=== PATIENT | male | born 1970 | race Hispanic/Latino ===

== ENCOUNTER 2017-10-30 10:43 | Observation (INO) | payer BC ==
[2017-10-30 10:50] VITALS: BMI 27.1
[2017-10-30] MEDS ORDERED: Sodium Chloride 0.9% 1,000 ML IV STA (11:49)
--- NOTE | 2017-10-30 11:56 | ED PDOC ---
HPI: Chest Pain Time Seen by Provider: 10/30/17 10:58 Chief Complaint (Nursing): Chest Pain Chief Complaint (Provider): Chest pain History Per: Patient History/Exam Limitations: no limitations Onset/Duration Of Symptoms: Days (Tues) Additional History Per: Patient Additional Complaint(s): Pt. with chest pain left side off and on. Took asa today as pain was still there. He got palpitations briefly with it today so he came to the ER. Has left hand fingers with off and on tingles when the pain in the chest comes. Dyspnea also with the pain. No leg pain, abd pain, numbness, arm pain, vision changes, headaches, dizziness, long distance travel, or hormone use. Past Medical History Reviewed: Nursing Documentation, Vital Signs Vital Signs: Last Vital Signs Temp 97.7 F 10/30/17 10:52 Pulse 62 10/30/17 14:04 Resp 18 10/30/17 14:04 BP 112/64 10/30/17 14:04 Pulse Ox 98 10/30/17 14:04 - Medical History PMH: No Chronic Diseases - Surgical History Surgical History: No Surg Hx - Family History Family History: States: Unknown Family Hx - Home Medications Home Medications: Ambulatory Orders Medication Instructions Recorded No Known Home Med 10/30/17 - Allergies Allergies/Adverse Reactions: Allergies Allergy/AdvReac Type Severity Reaction Status Date / Time No Known Allergies Allergy Verified 10/30/17 11:10 Review of Systems ROS Statement: Except As Marked, All Systems Reviewed And Found Negative Cardiovascular: Positive for: Chest Pain Respiratory: Positive for: Shortness of Breath Physical Exam - Reviewed Nursing Documentation Reviewed: Yes Vital Signs Reviewed: Yes - Physical Exam Appears: Positive for: Non-toxic, No Acute Distress Head Exam: Positive for: ATRAUMATIC, NORMAL INSPECTION, NORMOCEPHALIC Skin: Positive for: Normal Color, Warm, DRY Eye Exam: Positive for: EOMI, Normal appearance, PERRL ENT: Positive for: Normal ENT Inspection Neck: Positive for: Normal, Painless ROM Cardiovascular/Chest: Positive for: Regular Rate, Rhythm, Chest Non Tender. Negative for: Edema Respiratory: Positive for: CNT, Normal Breath Sounds Gastrointestinal/Abdominal: Positive for: Normal Exam, Soft. Negative for: Tenderness Back: Positive for: Normal Inspection. Negative for: L CVA Tenderness, R CVA Tenderness Extremity: Positive for: Normal ROM. Negative for: Tenderness, Pedal Edema Neurologic/Psych: Positive for: Alert, Oriented - Laboratory Results Result Diagrams: 10/30/17 12:05 10/30/17 12:05 Interpretation Of Abn Labs: no acute - ECG ECG: Positive for: Interpreted By Me, Viewed By Me ECG Rhythm: Positive for: Normal QRS (inverted t wave lead 3), Normal ST Segment , Sinus Rhythm O2 Sat by Pulse Oximetry: 97 Pulse Ox Interpretation: Normal - Radiology X-Ray: Interpreted by Me, Viewed By Me X-Ray Interpretation: No Acute Disease - Progress ED Course And Treament: 1506: Stable. AAOx3. Pain gone after nitro. Will need obs for acs workup. Has not had a work up for it. Considering type of pain and presentation, will admit obs. Pt. does not know pcp. Ok with admit to medical doctor budget consultant. 1514: Spoke with Dr. Gil. Will admit tele obs. Disposition - Clinical Impression Clinical Impression: Chest pain Counseled Patient/Family Regarding: Studies Performed, Diagnosis - Disposition Disposition Time: 15:14 Condition: FAIR - Pt Status Changed To: Hospital Disposition Of: Observation - POA Present On Arrival: None
[2017-10-30 12:14] LABS: BASO # 0.1 K/uL (0.0-0.2); EOS # 0.1 K/uL (0.0-0.7); EOS % 1.8 % (0.0-4.0); HEMOGLOBIN 13.9 g/dL (12.0-18.0); LYMPH # 1.1 K/uL (1.0-4.3); LYMPH % 21.2 % (20.0-40.0); MEAN CELL VOLUME 81.1 fl (80.0-94.0); MEAN CORPUSCULAR HEMOGLOBIN 28.5 pg (27.0-31.0); MEAN CORPUSCULAR HGB CONC 35.2 g/dL (33.0-37.0); MONO # 0.4 K/uL (0.0-0.8); NEUT # 3.4 K/uL (1.8-7.0); NRBC % 0.2 % (0.0-0.0); RBC 4.89 Mil/uL (4.40-5.90); RED CELL DISTRIBUTION WIDTH 13.9 % (11.5-14.5)
[2017-10-30 12:25] LABS: PARTIAL THROMBOPLASTIN TIME 33.4 Seconds (25.6-37.1); PROTHROMBIN TIME 11.6 Seconds (9.8-13.1)
[2017-10-30 12:47] LABS: BLOOD UREA NITROGEN 15 mg/dl (9-20); CALCIUM 9.3 mg/dL (8.4-10.2); GFR NON-AFRICAN AMERICAN > 60
[2017-10-30 12:48] LABS: ALB/GLOB RATIO 1.4 (1.0-2.1); ALBUMIN 4.3 g/dL (3.5-5.0); ALT/SGPT 30 U/L (21-72); AST/SGOT 28 U/L (17-59)
--- NOTE | 2017-10-30 15:21 | RAD ---
Date of service: 10/30/2017 HISTORY: Dyspnea COMPARISON: 08/27/2011. FINDINGS: LUNGS: No active pulmonary disease. PLEURA: No significant pleural effusion identified, no pneumothorax apparent. CARDIOVASCULAR: Normal. OSSEOUS STRUCTURES: No significant abnormalities. VISUALIZED UPPER ABDOMEN: Normal. OTHER FINDINGS: None. IMPRESSION: No active disease. No significant interval change compared to the prior examination(s). Concordant results with the preliminary interpretation rendered by the emergency department physician procedure.
--- NOTE | 2017-10-30 15:42 | CP.PCM.HP ---
<Rosey Peraza - Last Filed: 10/30/17 17:07> History of Present Illness - History of Present Illness History of Present Illness: HPI: 47 YO Male with no sig PMHx presents to [facility] ED for chest pain. Pt states that his chest pain started on Thursday and episodes are intermittent. Pt describes the pain as L sided, lasts about 30-40 mins each time and resolves on its own. Pain not associated with activity, but during these episodes pt has increase diaphoresis, and some L arm numbness (that resolves when pain stops). Pt has been taking Asa 81mg at home the past few days to help with the pain. In the ED, pain resolved after Nitro. PMHx: denies Surghx: R inguinal hernia repair (2017) FHx: PCKD in father SH: denies smoking and illicit drug use, social ETOH Allergies: NKDA Meds: asa 81 and occasional tylenol Present on Admission - Present on Admission Any Indicators Present on Admission: No Review of Systems - Constitutional Constitutional: absent: Fever, Headache, Malaise, Weight Loss - Cardiovascular Cardiovascular: Chest Pain. absent: Dyspnea - Respiratory Respiratory: absent: Cough, Dyspnea - Gastrointestinal Gastrointestinal: absent: Abdominal Pain, Diarrhea, Dysphagia - Genitourinary Genitourinary: absent: Dysuria - Musculoskeletal Musculoskeletal: absent: Back Pain, Muscle Weakness, Myalgias - Neurological Neurological: Tingling. absent: Dizziness, Numbness, Headaches Past Patient History - Past Social History Smoking Status: Never Smoked Alcohol: Social Drugs: Denies Home Situation {Lives}: With Family - PSYCHIATRIC Hx Substance Use: No - SURGICAL HISTORY Hx Surgeries: No Meds Allergies/Adverse Reactions: Allergies Allergy/AdvReac Type Severity Reaction Status Date / Time No Known Allergies Allergy Verified 10/30/17 11:10 Physical Exam - Constitutional Appears: No Acute Distress - Head Exam Head Exam: NORMAL INSPECTION - Eye Exam Eye Exam: EOMI, Normal appearance - ENT Exam ENT Exam: Mucous Membranes Moist - Respiratory Exam Respiratory Exam: Clear to Auscultation Bilateral, NORMAL BREATHING PATTERN. absent: Wheezes - Cardiovascular Exam Cardiovascular Exam: REGULAR RHYTHM, +S1, +S2 Additional comments: No chest wall tenderness - GI/Abdominal Exam GI & Abdominal Exam: Normal Bowel Sounds, Soft. absent: Tenderness - Extremities Exam Extremities exam: Positive for: normal inspection. Negative for: pedal edema Additional comments: Strength 5/5 upper and lower extremities Sensory intact b/l - Back Exam Back exam: NORMAL INSPECTION. absent: CVA tenderness (L), CVA tenderness (R) - Neurological Exam Neurological exam: Alert, CN II-XII Intact, Oriented x3 - Psychiatric Exam Psychiatric exam: Normal Mood Results - Vital Signs Recent Vital Signs: Last Vital Signs Temp 97.7 F 10/30/17 10:52 Pulse 62 10/30/17 14:04 Resp 18 10/30/17 14:04 BP 112/64 10/30/17 14:04 Pulse Ox 97 10/30/17 15:14 - Labs Result Diagrams: 10/30/17 12:05 10/30/17 12:05 Labs: Laboratory Results - last 24 hr 10/30/17 10/30/17 10/30/17 12:05 12:05 12:05 WBC 5.0 RBC 4.89 Hgb 13.9 Hct 39.6 MCV 81.1 MCH 28.5 MCHC 35.2 RDW 13.9 Plt Count 198 MPV 8.0 Neut % (Auto) 67.0 Lymph % (Auto) 21.2 [place] % (Auto) 9.0 Eos % (Auto) 1.8 Baso % (Auto) 1.0 Neut # (Auto) 3.4 Lymph # (Auto) 1.1 [place] # (Auto) 0.4 Eos # (Auto) 0.1 Baso # (Auto) 0.1 PT 11.6 INR 1.0 APTT 33.4 D-Dimer, Quantitative 104 Sodium 141 Potassium 4.1 Chloride 106 Carbon Dioxide 25 Anion Gap 14 BUN 15 Creatinine 0.9 Est GFR ( Amer) > 60 Est GFR (Non-Af Amer) > 60 Random Glucose 93 Calcium 9.3 Total Bilirubin 1.2 AST 28 ALT 30 Alkaline Phosphatase 60 Troponin I < 0.0120 Total Protein 7.4 Albumin 4.3 Globulin 3.1 Albumin/Globulin Ratio 1.4 Assessment & Plan (1) Chest pain Status: Acute - Assessment and Plan (Free Text) Assessment: Assessment/Plan: 47 YO Male with no sig PMHx is admitted for chest pain, r/o ACS. -VS remain stable -CXR with no acute disease -EKG no acute ST elevation noted, rate 69 -Trop x 1 neg -Blood work reviewed, normal -cardiology consulted -follow up trops and blood work -plan as ordered Pt discussed with Dr. Gil <Deon Gil - Last Filed: 11/01/17 20:30> Results - Vital Signs Recent Vital Signs: Last Vital Signs Temp 97.8 F 10/31/17 08:00 Pulse 56 L 10/31/17 08:00 Resp 20 10/31/17 08:00 BP 120/74 10/31/17 08:00 Pulse Ox 97 10/31/17 08:00 - Labs Result Diagrams: 10/30/17 12:05 10/30/17 12:05 Labs: Laboratory Results - last 24 hr 10/31/17 06:00 Hemoglobin A1c 4.3 Assessment & Plan - Assessment and Plan (Free Text) Assessment: Patient was personally seen and examined by me in rounds with residents. Available labs and diagnostic data reviewed. Case, Patient's condition and management plan discussed with residents in rounds. Agree with resident's progress note. Plan: As ordered.
--- NOTE | 2017-10-30 19:14 | CP.PCM.CON ---
History of Present Illness - History of Present Illness History of Present Illness: PT C/O CP X 5 DAYS. PAIN IS DESCRIBED PRESSURE OVER LEFT LOWER CHEST, WITH ASSOCIATED LEFT HAND TIGHTNESS, 7/10, LASTING 20 MIN, OCCURRING AT REST AND IMPROVING WITH MOVEMENT AND WALKING. PT HAS ASSOCIATED DYSPNEA AND DIAPHORESIS. NO N/V/D/C, F/C, NO TREMORS. PT DENIES HTN, DYSLIPIDEMIA, DM, FAM HX OF CAD OR HX OF TOBACCO. EKG SHOWS SR, NML AXIS, INTERVALS AND ST SEGMENTS Review of Systems - Constitutional Constitutional: As Per HPI. absent: Anorexia, Chills, Daytime Sleepiness, Excessive Sweating, Fatigue, Fever, Frequent Falls, Headache, Increased Appetite , Lethargy, Malaise, Night Sweats, Snoring, Sleep Apnea, Weight Gain, Weight Loss, Weakness, Other - EENT Eyes: As Per HPI. absent: Blind Spots, Blurred Vision, Change in Vision, Decreased Night Vision, Diplopia, Discharge, Dry Eye, Exophthalmos, Floaters, Irritation, Itchy Eyes, Loss of Peripheral Vision, Pain, Photophobia, Requires Corrective Lenses, Sees Flashes, Spots in Vision, Tunnel Vision, Other Visual Disturbances, Loss of Vision, Other Ears: As Per HPI. absent: Decreased Hearing, Ear Discharge, Ear Pain, Tinnitus , Abnormal Hearing, Disequilibrium, Dizziness, Other Nose/Mouth/Throat: As Per HPI. absent: Epistaxis, Nasal Congestion, Nasal Discharge, Nasal Obstruction, Nasal Trauma, Nose Pain, Post Nasal Drip, Sinus Pain, Sinus Pressure, Bleeding Gums, Change in Voice, Dental Pain, Dry Mouth, Dysphagia, Halitosis, Hoarsness, Lip Swelling, Mouth Lesions, Mouth Pain, Odynophagia, Sore Throat, Throat Swelling, Tongue Swelling, Facial Pain, Neck Pain, Neck Mass, Other - Cardiovascular Cardiovascular: As Per HPI, Chest Pain at Rest, Diaphoresis, Dyspnea. absent: Acrocyanosis, Chest Pain, Chest Pain with Activity, Claudication, Dyspnea on Exertion, Edema, Irregular Heart Rhythm, Pain Radiating to Arm/Neck/Jaw, Leg Edema, Leg Ulcers, Lightheadedness, Orthopnea, Palpitations, Paroxysmal Nocturnal Dyspnea, Pedal Edema, Radiating Pain, Rapid Heart Rate, Slow Heart Rate, Syncope, Other - Respiratory Respiratory: As Per HPI. absent: Cough, Dyspnea, Hemoptysis, Dyspnea on Exertion, Wheezing, Snoring, Stridor, Pain on Inspiration, Chest Congestion, Excessive Mucous Production, Change in Mucous Color, Pain with Coughing, Other - Gastrointestinal Gastrointestinal: As Per HPI. absent: Abdominal Pain, Belching, Bloating, Change in Bowel Habits, Change in Stool Character, Coffee Ground Emesis, Constipation, Cramping, Diarrhea, Dyspepsia, Dysphagia, Early Satiety, Excessive Flatus, Fecal Incontinence, Heartburn, Hematemesis, Hematochezia, Loose Stools, Melena, Nausea, Odynophagia, Temesmus, Vomiting, Other - Genitourinary Genitourinary: As Per HPI. absent: Change in Urinary Stream, Difficulty Urinating, Dysuria, Flank Pain, Hematuria, Pyuria, Nocturia, Urinary Incontinence, Urinary Frequency, Urinary Hesitance, Urinary Urgency, Voiding Freq/Small Amts, Freq UTI, Hx Renal/Bladder Calculi, Hx /Renal Surgery, Bladder Distension, Other - Musculoskeletal Musculoskeletal: As Per HPI. absent: Abnormal Gait, Arthralgias, Atrophy, Back Pain, Deformity, Joint Swelling, Limited Range of Motion, Loss of Height, Muscle Cramps, Muscle Weakness, Myalgias, Neck Pain, Numbness, Radiating Pain into Limb, Stiffness, Tingling, Other - Integumentary Integumentary: As Per HPI. absent: Acne, Alopecia, Bleeding Lesions, Change in Hair, Change in Nails, Change in Pigmentation, Changing Lesions, Dry Skin, Erythema, Furuncle, Hirsutism, Lesions, New Lesions, Non-Healing Lesions, Photosensitivity, Pruritus, Rash, Skin Pain, Skin Ulcer, Sores, Striae, Swelling , Unusual Bruising, Wounds, Jaundice, Other - Neurological Neurological: As Per HPI. absent: Abnormal Gait, Abnormal Hearing, Abnormal Movements, Abnormal Speech, Behavioral Changes, Burning Sensations, Confusion, Convulsions, Disequilibrium, Dizziness, Numbness, Focal Weakness, Frequent Falls , Headaches, Lack of Coordination, Loss of Vision, Memory Loss, Paresthesias, Radicular Pain, Restless Legs, Sensory Deficit, Syncope, Tingling, Tremor, Vertigo, Weakness, Other Visual Disturbances, Other - Psychiatric Psychiatric: As Per HPI. absent: Abnormal Sleep Pattern, Anhedonia, Anxiety, Auditory Hallucinations, Behavioral Changes, Change in Appetite, Change in Libido, Confusion, Depression, Difficulty Concentrating, Hallucinations, Homicidal Ideation, Hopelessness, Irritability, Memory Loss, Mood Swings, Panic Attacks, Paranoia, Suicidal Ideation, Visual Hallucinations, Tactile Hallucinations, Other - Endocrine Endocrine: As Per HPI. absent: Change in Body Appearance, Change in Libido, Cold Intolorance, Deepening of Voice, Excessive Sweating, Fatigue, Flushing, Heat Intolorance, Increase in Ring/Shoe/Hat Size, Palpitations, Polydipsia, Polyphagia, Polyuria, Other - Hematologic/Lymphatic Hematologic: As Per HPI. absent: Easy Bleeding, Easy Bruising, Lymphadenopathy , Other Past Patient History - Past Medical History & Family History Past Medical History?: No - Past Social History Smoking Status: Never Smoked Alcohol: Social Drugs: Denies Home Situation {Lives}: With Family - HEMATOLOGICAL/ONCOLOGICAL Hx Blood Disorders: No - MUSCULOSKELETAL/RHEUMATOLOGICAL Hx Falls: No - PSYCHIATRIC Hx Substance Use: No - SURGICAL HISTORY Hx Surgeries: No - ANESTHESIA Hx Anesthesia: No Hx Anesthesia Reactions: No Hx Malignant Hyperthermia: No Has any member of the family had a problem w/ anesthesia?: No Meds Allergies/Adverse Reactions: Allergies Allergy/AdvReac Type Severity Reaction Status Date / Time No Known Allergies Allergy Verified 10/30/17 11:10 - Medications Medications: Current Medications Acetaminophen (Tylenol 325mg Tab) 650 mg PO Q6 PRN PRN Reason: Pain, Mild (1-3) Aspirin (Aspirin Chewable) 81 mg PO DAILY [facility] Enoxaparin Sodium (Lovenox) 40 mg SC DAILY [facility] PRN Reason: Protocol Nitroglycerin (Nitrostat Sl Tab) 0.4 mg SL Q5M PRN PRN Reason: angina Physical Exam - Constitutional Appears: Well - Head Exam Head Exam: ATRAUMATIC, NORMAL INSPECTION, NORMOCEPHALIC - Eye Exam Eye Exam: EOMI, Normal appearance, PERRL. absent: Conjunctival injection, Nystagmus, Periorbital swelling, Periorbital tenderness, Scleral icterus Pupil Exam: NORMAL ACCOMODATION, PERRL. absent: Fixed, Irregular, Miosis, Mydriatic, Unequal - ENT Exam ENT Exam: Mucous Membranes Moist, Normal Exam. absent: Mucous Membranes Dry, Normal External Ear Exam, Normal Oropharynx, TM's Normal Bilaterally - Neck Exam Neck exam: Positive for: Normal Inspection. Negative for: Full Rom, Lymphadenopathy, Meningismus, Tenderness, Thyromegaly - Respiratory Exam Respiratory Exam: Clear to Auscultation Bilateral, NORMAL BREATHING PATTERN. absent: Accessory Muscle Use, Chest Wall Tenderness, Decreased Breath Sounds, Prolonged Expiratory Phase, Rales, Rhonchi, Wheezes, Respiratory Distress, Stridor - Cardiovascular Exam Cardiovascular Exam: REGULAR RHYTHM, +S1, +S2. absent: Bradycardia, Tachycardia , Clicks, Diastolic murmur, Gallop, Irregular Rhythm, JVD, RRR, Rubs, +S4, Systolic Murmur - GI/Abdominal Exam GI & Abdominal Exam: Normal Bowel Sounds, Soft. absent: Bruit, Diminished Bowel Sounds, Distended, Firm, Guarding, Hernia, Hyperactive Bowel Sounds, Hypoactive Bowel Sounds, Mass, Organomegaly, Pulsatile Mass, Rebound, Rigid, Tenderness - Rectal Exam Rectal Exam: Deferred - Extremities Exam Extremities exam: Positive for: normal inspection, pedal pulses present. Negative for: calf tenderness, full ROM, joint swelling, normal capillary refill , pedal edema, tenderness - Back Exam Back exam: NORMAL INSPECTION. absent: CVA tenderness (L), CVA tenderness (R), FULL ROM, muscle spasm, paraspinal tenderness, rash noted, tenderness, vertebral tenderness - Neurological Exam Neurological exam: Alert, CN II-XII Intact, Normal Gait, Oriented x3, Reflexes Normal - Psychiatric Exam Psychiatric exam: Normal Affect, Normal Mood - Skin Skin Exam: Dry, Intact, Normal Color, Warm Results - Vital Signs Recent Vital Signs: Last Vital Signs Temp 97 F L 10/30/17 16:54 Pulse 61 10/30/17 16:56 Resp 18 10/30/17 16:56 BP 128/76 10/30/17 16:54 Pulse Ox 98 10/30/17 16:54 - Labs Result Diagrams: 10/30/17 12:05 10/30/17 12:05 Labs: Laboratory Results - last 24 hr 10/30/17 10/30/17 10/30/17 12:05 12:05 12:05 WBC 5.0 RBC 4.89 Hgb 13.9 Hct 39.6 MCV 81.1 MCH 28.5 MCHC 35.2 RDW 13.9 Plt Count 198 MPV 8.0 Neut % (Auto) 67.0 Lymph % (Auto) 21.2 [place] % (Auto) 9.0 Eos % (Auto) 1.8 Baso % (Auto) 1.0 Neut # (Auto) 3.4 Lymph # (Auto) 1.1 [place] # (Auto) 0.4 Eos # (Auto) 0.1 Baso # (Auto) 0.1 PT 11.6 INR 1.0 APTT 33.4 D-Dimer, Quantitative 104 Sodium 141 Potassium 4.1 Chloride 106 Carbon Dioxide 25 Anion Gap 14 BUN 15 Creatinine 0.9 Est GFR ( Amer) > 60 Est GFR (Non-Af Amer) > 60 Random Glucose 93 Calcium 9.3 Total Bilirubin 1.2 AST 28 ALT 30 Alkaline Phosphatase 60 Troponin I < 0.0120 Total Protein 7.4 Albumin 4.3 Globulin 3.1 Albumin/Globulin Ratio 1.4 Assessment & Plan (1) Chest pain Status: Acute (2) History of anxiety Status: Acute - Assessment and Plan (Free Text) Plan: ATYPICAL CHEST PAIN. R/O NC WITH TROP AND EKG. IF NEG MAY BE D/C TO HOME. WILL FOLLOWUP IN OFFICE ThuNov AT 11AM. WILL DO ECHO AND STRESS TESTING OUTPT. PT TO STAY ON ASA 325MG PO DAILY UNTIL STRESS TEST.
[2017-10-31 00:20] VITALS: O2SAT 97
[2017-10-31 08:03] LABS: HDL CHOLESTEROL 51 MG/DL (30-70)
[2017-10-31 08:13] LABS: LDL CHOLESTEROL 91 mg/dL (0-129)
[2017-10-31 08:22] VITALS: BP 120/74; PULSE 56; RESP 20; TEMP 97.8
[2017-10-31] MEDS ORDERED: Enoxaparin 40 mg Syringe SC SCH (09:00)
--- NOTE | 2017-10-31 15:03 | PN ---
DATE: 10/31/2017 SUBJECTIVE: The patient seen and examined. The patient feels okay. Denies any complaint of chest pain or shortness of breath. PHYSICAL EXAMINATION: GENERAL: The patient is in no acute distress. VITAL SIGNS: Stable. HEART: S1 and S2, normal and regular. LUNGS: Good bilateral air exchange. ABDOMEN: Soft and nontender. EXTREMITIES: No edema. No calf swelling. No tenderness. No acute ischemia. ENERGY CONSERVATION REPRESENTATIVE: Exam is essentially unchanged. DIAGNOSTIC DATA: Available diagnostic data reviewed. Troponin three sets are negative. Telemetry monitoring does not reveal significant arrhythmia. ASSESSMENT AND PLAN: Overall, the patient is medically stable. Cardiology consult noted and appreciated. Plan as ordered. Deon Gil MD
--- NOTE | 2017-10-31 15:16 | CARD ---
APPROVED REPORT Date of service: 10/30/2017 EKG Measurement Heart [id number] <Conclusion> Normal sinus rhythm Possible Left atrial enlargement Borderline ECG
== END 2017-10-31 11:40 | disposition home or self-care (01) ==
LOC: H.ER 10:43 → INTOOBSV 15:12 → H.ERHOLD 15:12 → H.TEL 16:47
PROVIDERS: ADMIT Internal Medicine; ATTEND Internal Medicine
DX: R07.89 Other chest pain (principal); Z79.82 Long term (current) use of aspirin; R00.2 Palpitations; R06.00 Dyspnea, unspecified; R20.0 Anesthesia of skin; R61 Generalized hyperhidrosis
CPT/HCPCS: 36415; 71045; 80053; 80061; 82607; 83036; 84443; 84484; 85025; 85378; 85610; 85730; 93005; 96372; 99285; G0378; J1650; J7030